=== PATIENT | female | born 1955 | race Caucasian/White ===

== ENCOUNTER → 2017-03-24 | Outpatient (CLI) | payer OTHER ==
--- NOTE | 2017-03-25 13:04 | US ---
Procedure: US CAROTID DOPPLER BILATERAL Exam Date: 03/24/2017 2:56 PM TELEHEALTH DIRECTOR Ordering Provider: SINAN THOMPSON Clinical Indication: OCCLUSION AND STENOSIS OF LEFT CAROTID ARTERY Comparison: None TECHNIQUE : Real-time cerebrovascular ultrasonography was obtained from sternal notch to the angle of the mandible bilaterally utilizing beyer scale, color flow and spectral Doppler analysis. Systolic velocity ratios were calculated for internal carotid artery to common carotid artery bilaterally. FINDINGS: RIGHT CAROTID BIFURCATION: Moderate atherosclerotic plaque. Peak systolic and end-diastolic velocities in the right internal carotid artery are 72 and 20 cm/s. Internal carotid/common carotid ratio is 0.7. Right vertebral flow is antegrade. LEFT CAROTID BIFURCATION: Moderate atherosclerotic plaque. Peak systolic and end-diastolic velocities in the left internal carotid artery are 76 and 19 cm/s. Internal carotid/common carotid ratio is 1.3. Left vertebral flow is antegrade. IMPRESSION: 1. Moderate atherosclerotic plaque in each carotid bulb and ICA origin. 2. There is no significant stenosis (less than 40%) at both ICA origins. 3. Bilateral antegrade vertebral artery flow. Electronically signed by: Trace Chapa MD 03/25/2017 1:02 PM TELEHEALTH DIRECTOR
== END ==
LOC: US 14:37
PROVIDERS: ATTEND Family Medicine
DX: I65.22 Occlusion and stenosis of left carotid artery (principal)

== ENCOUNTER → 2018-11-10 | Outpatient (CLI) | payer BC | LOC: LAB.NP 10:20 | PROVIDERS: ATTEND Family Medicine | DX: E53.9 Vitamin B deficiency, unspecified (principal); I10 Essential (primary) hypertension; E11.9 Type 2 diabetes mellitus without complications ==

== ENCOUNTER → 2019-03-30 | Outpatient (CLI) | payer BC ==
--- NOTE | 2019-03-31 16:14 | MAM ---
EXAM DESCRIPTION: 3D Screening BILATERAL : Digital Mammography. CLINICAL HISTORY: 63 years Female ANNUAL SCREENING . No complaints. No personal or family history of breast cancer. Menarche age 8. Childbirth. Postmenopausal 34 years. HRT 5 or more years ago. Benign left breast biopsy. Lifetime risk of developing breast cancer (Tyrer-Cuzick model)(%): 5.2. COMPARISON: 2-D digital screening bilateral mammography 08 April 2016. TECHNIQUE: Bilateral CC and MLO projection full-field images, digital tomosynthesis mammographic technique. Bilateral digital 2-D full-field MLO images. CAD not available for tomosynthesis or 2-D images. FINDINGS: The breast parenchymal density pattern is: Scattered areas of fibroglandular density. No skin thickening or nipple retraction. Stable skin mass abutting the medial posterior and inferior left breast indicated by skin marker. Bilateral solitary microcalcifications in the parenchyma and on the scan. No new focal, stellate mass or density, focal asymmetry , and no suspicious microcalcifications bilaterally. Stable mammograms compared to prior study. Taking into account, differences in mammographic technique. IMPRESSION: Benign exam. BIRAD CATEGORY: 2 BENIGN FINDINGS. RECOMMENDATIONS: FOLLOW UP: Routine digital bilateral mammographic screening, one year interval from March 2019. Written communication explaining the IMPRESSION and follow-up, will be mailed to the patient and referring health care provider. According to the [employer], yearly mammograms are recommended starting at age 40 and continuing as long as a woman is in good health. Any breast change noted on a breast self-exam should be reported promptly to the patient's healthcare provider. Breast MRI is recommended for women with an approximately 20-25% or greater lifetime risk of breast cancer, including women with a strong family history of breast or ovarian cancer and women who have been treated for Hodgkin's disease. A negative mammographic report should not delay tissue diagnosis in patients with significant clinical history or physical findings. Extremely dense breast tissue limits the sensitivity of digital mammography. Electronically signed by: Salu Turpin MD 03/31/2019 4:13 PM INSPECTION ENGINEER
== END ==
LOC: MAMMO 10:00
PROVIDERS: ATTEND Nurse Practitioner Family
DX: Z12.31 Encounter for screening mammogram for malignant neoplasm of breast (principal)

== ENCOUNTER → 2019-06-02 | Outpatient (CLI) | payer BC | LOC: GMAM 13:21 | PROVIDERS: ATTEND Family Medicine | DX: E53.8 Deficiency of other specified B group vitamins (principal); E11.9 Type 2 diabetes mellitus without complications ==

== ENCOUNTER → 2019-10-21 | Outpatient (CLI) | payer BC ==
--- NOTE | 2019-10-22 08:56 | MRI ---
EXAM DESCRIPTION: Brain w/o Contrast: MRI. CLINICAL HISTORY: AGE RELATED COGNITIVE DECLINE COMPARISON: None. TECHNIQUE: Multiplanar, high-field MRI unit, multiple diffusion sequences, multiple conventional sequences without contrast. FINDINGS: Small focal lesion in the beyer-white matter junction of the left temporal lobe at the level of the temporal horn of the left lateral ventricle. Lesion less than 1 cm in diameter with no significant mass effect and minimal cerebral edema. The lesion is bright on T1 sequence, FLAIR sequence, and T2 sequence. Blooming signal on gradient echo. Artifact on diffusion studies limits evaluation for diffusion restriction. Similar smaller lesion at the vertex of the parasagittal posterior right frontal lobe is hyperintense on FLAIR and T2 signal and mixed signal on gradient sequence and low signal on T1 sequence. Normal diffusion at the vertex. Minimal confluent hyperintense FLAIR and T2-weighted signal in the periventricular white matter of the bilateral frontal lobes.. No hemorrhage, no cerebral edema, no midline shift. Normal diffusion. Normal signal in the bilateral basal ganglia. Normal signal in the brainstem and cerebellar hemispheres.. Concordance of the diffusion and non-diffusion sequences with no diffusion restriction. Cortical sulci, ventricles, and other CSF spaces, and the subdural spaces are normally configured for patients age. No effacement or displacement. No midline shift. No extra-axial hemorrhage. Normal flow signal void in the major vessels of the [place], and the venous sinuses. IACs are symmetric bilaterally. Normal signal in the bilateral mastoid air cells. No mass effect in the bilateral cerebellopontine angles. Pituitary gland occupies all of the sella. Base of the cerebellar tonsils is at the level of the foramen magnum. Minimal mucoperiosteal thickening in the paranasal sinuses.. The bony calvarium is intact. IMPRESSION: 1. Hemorrhagic lesion in the beyer-white matter junction of the left temporal lobe with minimal edema and mass effect. Diffusion in this lesion difficult to evaluate due to artifact. Differential includes hemorrhagic infarction or embolic infarction, versus hemorrhagic tumor. Smaller lesion with similar signal at the vertex of the posterior right frontal lobe. Consider follow-up MRI brain with gadolinium enhancement. 2. Remainder of the brain normally configured for patients age. Normal diffusion on diffusion scan. 3. Minimal chronic paranasal sinusitis. CRITICAL COMMUNICATION: The critical value was communicated directly by Dr. Turpin via phone call, with Dr. Sheila Aguilera, at approximately 845 hours, on October 22, 2019. Electronically signed by: Saul Turpin MD 10/22/2019 8:55 AM CDT
== END ==
LOC: MRI 12:40
PROVIDERS: ATTEND Family Medicine
DX: R41.81 Age-related cognitive decline (principal); I61.9 Nontraumatic intracerebral hemorrhage, unspecified; G93.9 Disorder of brain, unspecified; J32.9 Chronic sinusitis, unspecified

== ENCOUNTER → 2019-10-28 | Outpatient (CLI) | payer BC ==
--- NOTE | 2019-10-28 13:47 | MRI ---
EXAM DESCRIPTION: Brain w/wo Contrast: Magnetic Resonance Imaging. CLINICAL HISTORY: 63 years Female CEREBROVASCULAR DISEASE UNSPEC COMPARISON: Precontrast MRI brain October 20. TECHNIQUE: Multiplanar, high-field MRI, multiple conventional sequences, without and with Dotarem gadolinium IV contrast, 1 mL per 5 kg body weight. No adverse reactions. Multiple axial diffusion sequences. FINDINGS: The previously visualized small focal lesion in the beyer-white matter junction of the left temporal lobe, at the level of the temporal horn is less distinct on the current study. Minimal residual hemorrhage. Tiny focal central enhancement. Diffusion is difficult to evaluate due to artifact. No mass effect and no significant cerebral edema. The lesion in the posterior right frontal lobe parasagittal does not show contrast enhancement, and no mass effect or cerebral edema. No abnormal contrast enhancement elsewhere in the cerebral hemispheres, midbrain, brainstem, or posterior fossa. IMPRESSION: Small hemorrhagic lesion in the left temporal lobe seen on the prior study with minimal focal enhancement, but no significant mass effect or cerebral edema. Smaller lesion in the posterior right frontal lobe at the vertex parasagittal does not enhance. Small embolic hemorrhagic infarcts are more likely then primary tumors or metastatic disease. Electronically signed by: Saul Turpin MD 10/28/2019 1:46 PM CDT
== END ==
LOC: MRI 09:42
PROVIDERS: ATTEND Family Medicine
DX: Z01.812 Encounter for preprocedural laboratory examination (principal); I67.9 Cerebrovascular disease, unspecified; I61.8 Other nontraumatic intracerebral hemorrhage; G93.9 Disorder of brain, unspecified

== ENCOUNTER → 2020-06-28 | Outpatient (CLI) | payer MEDICARE, OTHER | LOC: GMAM 12:31 | PROVIDERS: ATTEND Family Medicine | DX: E53.8 Deficiency of other specified B group vitamins (principal); E55.9 Vitamin D deficiency, unspecified; I10 Essential (primary) hypertension; E11.49 Type 2 diabetes mellitus with other diabetic neurological complication ==